=== PATIENT | female | born 1950 | race African-American/Black ===

== ENCOUNTER 2019-09-14 17:39 | Inpatient (IN) | payer OTHER, MEDICAID ==
[~2019-09-14] VITALS: Ht 157.5 cm; Wt 49.0 kg
[2019-09-14 18:16] VITALS: BP_SYST 139
[2019-09-14 18:51] LABS: BASOPHILS % (AUTO) 0.8 % (0.0-2.0); EOSINOPHILS # (AUTO) 0.1 K/uL (0.0-0.4); EOSINOPHILS % (AUTO) 1.5 % (0.0-4.0); HEMATOCRIT 38.1 % (36-48); LYMPHOCYTES # (AUTO) 1.6 K/uL (1.0-5.5); LYMPHOCYTES % (AUTO) 37.1 % (20.5-51.5); MEAN CORPUSCULAR HEMOGLOBIN 32 pg (27-31); MEAN CORPUSCULAR HGB CONC 34 % (32-36); MEAN CORPUSCULAR VOLUME 93 fL (79.0-98.0); MONOCYTES # (AUTO) 0.4 K/uL (0.0-1.0); MONOCYTES % (AUTO) 9.2 % (1.7-9.3); NEUTROPHILS # (AUTO) 2.3 K/uL (1.8-7.7); NEUTROPHILS % (AUTO) 51.4 % (40.0-70.0); PLATELET COUNT (AUTO) 275 K/uL (130-430); RED BLOOD CELL COUNT(AUTO) 4.09 MIL/uL (4.2-6.2); RED CELL DISTRIBUTION WIDTH 13.8 % (9.0-15.0); WHITE BLOOD COUNT (AUTO) 4.4 K/uL (4.8-10.8)
[2019-09-14 19:17] LABS: ANION GAP 5 (5-15); CALCIUM 8.7 mg/dL (8.4-11.0); CHLORIDE 93 mmol/L (98-107); CREATININE 0.66 mg/dL (0.55-1.30); GLUCOSE 92 mg/dL (70-99); POTASSIUM 3.4 mmol/L (3.5-5.1); SODIUM SERUM 131 mmol/L (136-145); UREA NITROGEN, BLOOD 12 mg/dL (8-21)
[2019-09-14 19:21] LABS: GFR AFRICAN AMERICAN 115 mL/min (>90); PROTHROMBIN TIME 10.1 SECS (9.5-12.5)
[2019-09-14 19:27] LABS: ALANINE AMINOTRANSFERASE 22 U/L (12-78); ASPARTATE AMINOTRANSFERASE 31 U/L (10-37); LIPASE 172 U/L (73-393); TOTAL BILIRUBIN 0.4 mg/dL (0.0-1.0)
[2019-09-14] MEDS ORDERED: ERGO2500 PO (21:35)
[2019-09-14] MEDS ORDERED: ACET325T53 PO (21:35)
[2019-09-14] MEDS ORDERED: OMEP20TA20 PO (21:35)
[2019-09-14] MEDS ORDERED: LORA-258 PO (21:35)
[2019-09-14] MEDS ORDERED: CYM30 PO (21:35)
[2019-09-14] MEDS ORDERED: FLEETMO RC (21:35)
[2019-09-14] MEDS ORDERED: DONE10TA37 PO (21:35)
[2019-09-14] MEDS ORDERED: DOCU-144 PO (21:35)
[2019-09-14] MEDS ORDERED: ALEN10TA7 PO (21:35)
[2019-09-14] MEDS ORDERED: BACL10TA PO (21:35)
[2019-09-14] MEDS ORDERED: LIP20 PO (21:35)
[2019-09-14] MEDS ORDERED: MOM PO (21:35)
[2019-09-14] MEDS ORDERED: HYDR25TA4 PO (21:35)
[2019-09-14 21:41] LABS: BILIRUBIN,URINE NEGATIVE (NEGATIVE); CLARITY/URINE CLEAR (CLEAR); COLOR,URINE YELLOW (YELLOW); GLUCOSE,URINE NEGATIVE (NEGATIVE); KETONES,URINE NEGATIVE (NEGATIVE); LEUKOCYTE ESTERASE ,URINE NEGATIVE (NEGATIVE); NITRITE, URINE NEGATIVE (NEGATIVE); PROTEIN URINE NEGATIVE (NEGATIVE); UROBILINOGEN,URINE 0.2 (0.2-1.0)
[2019-09-14 21:46] LABS: BLOOD, URINE TRACE (NEGATIVE)
[2019-09-14 22:04] LABS: BACTERIA,URINE FEW /HPF (None Seen); WBC,URINE 0-3 /HPF (0-3)
[2019-09-14 22:05] LABS: MUCUS,URINE None Seen /LPF (None Seen)
[2019-09-14 23:31] VITALS: BP_SYST 148
[2019-09-15 01:17] VITALS: BP_SYST 148
[2019-09-15 08:00] VITALS: BP_SYST 126
[2019-09-15 11:55] VITALS: BP_SYST 129
[2019-09-15] MEDS ORDERED: BACLOFEN 10 MG TABLET PO ONE (12:00)
[2019-09-15] MEDS ORDERED: ERGOCALCIFEROL 50000 UNIT PO SCH (12:00)
[2019-09-15] MEDS ORDERED: DONEPEZIL HCL 5 MG TABLET (ARICEPT) PO ONE (12:00)
[2019-09-15] MEDS ORDERED: MINERAL OIL 133 ML ENEMA RC PRN (12:00)
[2019-09-15] MEDS ORDERED: ACETAMINOPHEN 325 MG TABLET PO PRN (12:00)
[2019-09-15] MEDS ORDERED: MILK OF MAGNESIA 30 ML UDC PO PRN (12:00)
[2019-09-15] MEDS ORDERED: PANTOPRAZOLE SODIUM 40 MG TAB PO ONE (12:00)
[2019-09-15] MEDS ORDERED: HYDROCHLOROTHIAZIDE 25 MG TABLET (HCTZ) PO ONE (12:00)
[2019-09-15] MEDS ORDERED: LORazepam 1 MG TABLET PO PRN (12:00)
[2019-09-15] MEDS ORDERED: DULoxetine HCL 30 MG CAPSULE.DR (CYMBALTA) PO ONE (12:00)
[2019-09-15 16:49] VITALS: BP_SYST 104
[2019-09-15 19:40] VITALS: BP_SYST 129
[2019-09-15] MEDS: ATORVASTATIN 20 MG TABLET PO SCH (21:48)
[2019-09-15] MEDS: BACLOFEN 10 MG TABLET PO SCH (21:48)
[2019-09-15] MEDS: DOCUSATE SODIUM 100 MG CAPSULE PO SCH (21:48)
[2019-09-16 00:36] VITALS: BP_SYST 132
[2019-09-16] MEDS: DONEPEZIL HCL 5 MG TABLET (ARICEPT) PO SCH (09:41)
[2019-09-16] MEDS: DULoxetine HCL 30 MG CAPSULE.DR (CYMBALTA) PO SCH (09:41)
[2019-09-16] MEDS: BACLOFEN 10 MG TABLET PO SCH ×2 (09:41→20:53)
[2019-09-16] MEDS: PANTOPRAZOLE SODIUM 40 MG TAB PO SCH (09:41)
[2019-09-16] MEDS: HYDROCHLOROTHIAZIDE 25 MG TABLET (HCTZ) PO SCH (09:42)
[2019-09-16] MEDS: DOCUSATE SODIUM 100 MG CAPSULE PO SCH ×2 (09:42→20:53)
[2019-09-16 13:12] VITALS: BP_SYST 104
[2019-09-16 17:27] VITALS: BP_SYST 118
[2019-09-16 19:30] VITALS: BP_SYST 108
[2019-09-16] MEDS: ATORVASTATIN 20 MG TABLET PO SCH (20:53)
[2019-09-17 00:14] VITALS: BP_SYST 115
[2019-09-17 07:52] VITALS: BP_SYST 115
[2019-09-17] MEDS: DONEPEZIL HCL 5 MG TABLET (ARICEPT) PO SCH (08:09)
[2019-09-17] MEDS: DOCUSATE SODIUM 100 MG CAPSULE PO SCH ×2 (08:09→21:13)
[2019-09-17] MEDS: BACLOFEN 10 MG TABLET PO SCH ×2 (08:09→21:14)
[2019-09-17] MEDS: DULoxetine HCL 30 MG CAPSULE.DR (CYMBALTA) PO SCH (08:09)
[2019-09-17] MEDS: PANTOPRAZOLE SODIUM 40 MG TAB PO SCH (08:09)
[2019-09-17] MEDS: HYDROCHLOROTHIAZIDE 25 MG TABLET (HCTZ) PO SCH (08:09)
[2019-09-17 12:00] VITALS: BP_SYST 106
[2019-09-17 15:55] VITALS: BP_SYST 119
[2019-09-17 19:45] VITALS: BP_SYST 132
[2019-09-17] MEDS: ATORVASTATIN 20 MG TABLET PO SCH (21:13)
[2019-09-18 00:30] VITALS: BP_SYST 130
[2019-09-18 08:00] VITALS: BP_SYST 120
[2019-09-18] MEDS ORDERED: ALENDRONATE SODIUM 10 MG TABLET (FOSAMAX) PO SCH (09:00)
[2019-09-18] MEDS: DOCUSATE SODIUM 100 MG CAPSULE PO SCH ×2 (09:12→21:47)
[2019-09-18] MEDS: PANTOPRAZOLE SODIUM 40 MG TAB PO SCH (09:12)
[2019-09-18] MEDS: DONEPEZIL HCL 5 MG TABLET (ARICEPT) PO SCH (09:12)
[2019-09-18] MEDS: BACLOFEN 10 MG TABLET PO SCH ×2 (09:12→21:47)
[2019-09-18] MEDS: DULoxetine HCL 30 MG CAPSULE.DR (CYMBALTA) PO SCH (09:12)
[2019-09-18] MEDS: HYDROCHLOROTHIAZIDE 25 MG TABLET (HCTZ) PO SCH (09:13)
[2019-09-18 13:59] VITALS: BP_SYST 105
[2019-09-18 16:37] VITALS: BP_SYST 129
[2019-09-18] MEDS ORDERED: TEMAZEPAM 15 MG CAPSULE PO PRN (21:00)
[2019-09-18] MEDS: ATORVASTATIN 20 MG TABLET PO SCH (21:47)
[2019-09-19 02:40] VITALS: BP_SYST 110
[2019-09-19 06:31] LABS: BASOPHILS % (AUTO) 0.7 % (0.0-2.0); HEMATOCRIT 35.1 % (36-48); HEMOGLOBIN 12.4 g/dL (12.0-16.0); LYMPHOCYTES # (AUTO) 1.8 K/uL (1.0-5.5); LYMPHOCYTES % (AUTO) 39.4 % (20.5-51.5); MEAN CORPUSCULAR HEMOGLOBIN 32 pg (27-31); MEAN CORPUSCULAR HGB CONC 35 % (32-36); MEAN CORPUSCULAR VOLUME 92 fL (79.0-98.0); MONOCYTES % (AUTO) 22.4 % (1.7-9.3); NEUTROPHILS # (AUTO) 1.6 K/uL (1.8-7.7); NEUTROPHILS % (AUTO) 36.5 % (40.0-70.0); PLATELET COUNT (AUTO) 212 K/uL (130-430); RED BLOOD CELL COUNT(AUTO) 3.82 MIL/uL (4.2-6.2); RED CELL DISTRIBUTION WIDTH 13.6 % (9.0-15.0); WHITE BLOOD COUNT (AUTO) 4.5 K/uL (4.8-10.8)
[2019-09-19 06:54] LABS: CALCIUM 8.6 mg/dL (8.4-11.0); CREATININE 0.71 mg/dL (0.55-1.30); POTASSIUM 3.5 mmol/L (3.5-5.1)
[2019-09-19 08:02] VITALS: BP_SYST 116; BP_SYST 134
[2019-09-19] MEDS: DULoxetine HCL 30 MG CAPSULE.DR (CYMBALTA) PO SCH (08:38)
[2019-09-19] MEDS: DOCUSATE SODIUM 100 MG CAPSULE PO SCH (08:40)
[2019-09-19] MEDS: HYDROCHLOROTHIAZIDE 25 MG TABLET (HCTZ) PO SCH (08:40)
[2019-09-19] MEDS: PANTOPRAZOLE SODIUM 40 MG TAB PO SCH (08:40)
[2019-09-19] MEDS: BACLOFEN 10 MG TABLET PO SCH (08:40)
[2019-09-19] MEDS: DONEPEZIL HCL 5 MG TABLET (ARICEPT) PO SCH (08:40)
[2019-09-19 12:07] VITALS: BP_SYST 105
[2019-09-19 12:41] VITALS: BP_SYST 100; BP_SYST 105
[2019-09-19 16:00] VITALS: BP_SYST 100
== END 2019-09-19 16:10 | DRG 640 ==
LOC: SED 17:39 → STU 21:40
PROVIDERS: ADMIT Internal Medicine; ATTEND Internal Medicine
DX: E87.1 Hypo-osmolality and hyponatremia (principal); G93.41 Metabolic encephalopathy; R56.9 Unspecified convulsions; D50.9 Iron deficiency anemia, unspecified; E55.9 Vitamin D deficiency, unspecified; E78.5 Hyperlipidemia, unspecified; F32.9 Major depressive disorder, single episode, unspecified; G62.9 Polyneuropathy, unspecified; I10 Essential (primary) hypertension; M81.0 Age-related osteoporosis without current pathological fracture; E78.00 Pure hypercholesterolemia, unspecified; R26.9 Unspecified abnormalities of gait and mobility; F02.80 Dementia in other diseases classified elsewhere, unspecified severity, without behavioral disturbance, psychotic disturbance, mood disturbance, and anxiety; G30.9 Alzheimer's disease, unspecified; Z79.899 Other long term (current) drug therapy
CPT/HCPCS: 36415; 71045; 80048; 80053; 81000-TC; 83690-TC; 84484; 85025; 85610-TC; 85730-TC; 87081; 93306; 99285; G0378